=== PATIENT | male | born 1950 | race Caucasian/White ===

== ENCOUNTER 2016-08-08 04:33 | Observation (INO) | payer OTHER ==
[2016-08-08] VITALS (7 sets, daily range): BP systolic 132–165; BP diastolic 75–84; PULSE 60–98; TEMP 36.4–36.5; O2SAT 96–98; Ht 180.3 cm; Wt 89.5 kg
[~2016-08-08] VITALS: Ht 180.3 cm; Wt 89.5 kg
[~2016-08-08 04:33] MED LIST: ASPEC325 PO; GLC500 PO; LISI-729 PO; MEDLIST; METO50TA7 PO; NTRGSL/4 UT; SIMV5TAB2 PO
[2016-08-08 05:00] LABS: BASO % 0.4 %; BASO ABS # 0.02 K/uL (0-0.2); COMPLETE YES; EOS % 3.6 %; HEMATOCRIT 43.2 % (42-52); IG% 0.2 %; LYMPH % 27.6 %; MEAN CELL VOLUME 86.2 fL (80-100); MEAN CORPUSCULAR HEMOGLOBIN 30.7 pg (25-34); MEAN CORPUSCULAR HGB CONC 35.6 g/dl (32-36); MEAN PLATELET VOLUME 9.7 fL (7.4-10.4); MONO % 13.2 %; PLATELET COUNT 172 K/uL (130-400); RED BLOOD COUNT 5.01 M/uL (4.7-6.1); WHITE BLOOD COUNT 4.71 K/uL (4.8-10.8)
[2016-08-08 05:10] LABS: PARTIAL THROMBOPLASTIN RATIO 1.1; PROTHROMBIN TIME (PATIENT) 10.2 SECONDS (9.0-12.0)
[2016-08-08 05:32] LABS: ALT/SGPT 43 U/L (12-78); AST/SGOT 15 U/L (15-37); BLOOD UREA NITROGEN 23 mg/dl (7-18); BUN/CREATININE RATIO 23.3 (10-20); CALCIUM 8.4 mg/dl (8.5-10.1); CARBON DIOXIDE 26 mmol/L (21-32); CHLORIDE 106 mmol/L (98-107); GLUCOSE 151 mg/dl (70-99); MAGNESIUM 2.4 mg/dl (1.8-2.4); POTASSIUM 3.9 mmol/L (3.5-5.1); SODIUM 139 mmol/L (136-145)
[2016-08-08 05:36] LABS: ALB/GLOB RATIO 1.1 (0.9-2); ALKALINE PHOSPHATASE 89 U/L (45-117)
[2016-08-08] MEDS ORDERED: CITA20TA4 PO (05:45)
[2016-08-08] MEDS ORDERED: ASPI81TA28 PO (05:46)
[2016-08-08] MEDS ORDERED: GLC/500 PO (05:47)
--- NOTE | 2016-08-08 06:09 | EMERGENCY ROOM VISIT NOTE ---
ED Visit Note First contact with patient: 04:43 Patient was seen by our PA/MINISTER ASSISTANT. I was involved in the patient's care and did evaluate the patient myself. I was involved in the care throughout the ER stay. The patient presents with chest pain which sounds potentially cardiac in nature. He does have a cardiac history. He has stopped a lot of his cardiac medications. Admission/observation for further cardiac workup was felt warranted.
[2016-08-08] MEDS ORDERED: ASPIRIN 81 MG CHEW PO STA (06:10)
[2016-08-08] MEDS ORDERED: SODIUM CHLORIDE 0.9% 1000ML 1,000 ML IV SCH ×2 (08:04→08:45)
--- NOTE | 2016-08-08 08:04 | History and Physical ---
History & Physical Date & Time of Service: Aug 08, 2016 at 07:54 Chief Complaint: Pain Left Shoulder,Arm And Chest Primary Care Physician: Hossein Castillo M.D. History of Present Illness Source: patient This is a 66 yo M with PMHx of HTN, CAD, Hyperlipidemia, DM II not on insulin, and hx of previous cardiac cath in 2010 without stenting for chest pain complaints, hx radical prostatectomy 2006, depression and anxiety now presenting with new onset of dull left-sided chest pain with radiation into the left arm ,which started yesterday afternoon at approximately 2 PM . When the pain started he took a full dose aspirin and he decided to rest, and noticed that the pain was alleviated slightly. When he was up and walking, he notes that the pain came worse, although he continued to ignore it until late at night. This morning the patient came to the ER as she was fearful that this was cardiac in nature. He denies symptoms including radiation to the neck or jaw, lightheadedness, dizziness, shortness of breath. The patient does admit to a weight gain of approximately 20 pounds since Feb 2016. He is currently not on any cardiac medications, diabetic medications, and has recently stopped taking his statin because of taking dandelion root to help lower his PSA. The patient had lost weight prior to last fall, he was taken off cardiac medications did not require diabetic meds. The patient admits to feeling more short of breath and easily fatigued with exertion since last fall. He reports eating and drinking well. He is a fairly active person. The patient does not smoke although has a remote smoking history 45 years ago. He does drink 1 glass of red wine almost every day of the week. Here in the ER troponins were negative 1, lipase elevated at 451, chest x-ray appears clear, EKG was completed and shows normal sinus rhythm without ischemic or ST wave changes or inversions. The patient's vital signs are stable, he is on room air. Past Medical/Surgical History Diabetes type 2 Coronary artery disease Hypertension Hyperlipidemia Hx of cardiac cath 2010 Depression Anxiety Radical prostatectomy 2006 Social History Smoking Status: Former Smoker Smokeless Tobacco Use: No Alcohol Use: heavy (1 glass of red wine daily) Drug Use: none Marital Status: Housing status: lives with family Occupational Status: retired Immunizations History of Influenza Vaccine: Unknown Influenza Vaccine Date: May 26, 2009 History of Tetanus Vaccine?: Unknown History of Pneumococcal: Unknown Pneumococcal Date: Feb 24, 2008 History of Hepatitis B Vaccine: Unknown Multi-Drug Resistant Organisms History of MDRO: No Allergies Coded Allergies: No Known Allergies (Verified , 07/24/09) Home Medications Scheduled Aspirin (Aspirin Ec), 81 MG PO DAILY Citalopram Hydrobromide (Citalopram Hydrobromide), 20 MG PO DAILY Scheduled PRN Metformin Hcl (Glucophage), 500 MG PO DAILY PRN for ELEVATED BLOOD SUGAR Review of Systems ROS Constitutional: No fever, chills, sweats, fatigue or weakness Eyes: No diplopia, no changes in vision ENT: No sore throat, tinnitus, or trouble swallowing Respiratory: No shortness of breath, + increased shortness of breath on exertion , no cough or sputum Cardiovascular: + chest pain, radiation to the left arm. No palpitations, or flutter Abdomen: No pain, No constipation, No diarrhea, No nausea, No vomiting Musculoskeletal: No calf pain, No joint pain, No swelling Genitourinary : No dysuria or urinary frequency, No hematuria Neurologic: No numbness/tingling, no difficulty with ambulation, no sensory or motor deficits Psychiatric: hx of depression, + anxiety symptoms Endocrine: No fatigue, + wt gain of 20 pounds Integumentary: No itch, No rash Physical Exam Vital Signs Date Time Temp Pulse Resp B/P Pulse Ox O2 Delivery O2 Flow Rate FiO2 08/08/16 07:30 98 Room Air 08/08/16 06:19 70 20 139/81 98 Room Air 08/08/16 05:06 66 08/08/16 04:56 99 Room Air 08/08/16 04:37 36.4 78 18 138/79 97 Room Air General Appearance: WD/WN, no apparent distress Head: normocephalic, atraumatic Eyes: PERRL, EOMI ENT: hearing grossly normal, pharynx normal Neck: supple, no JVD Respiratory/Chest: lungs clear, no respiratory distress, no accessory muscle use, + pertinent finding (chest tender with palpation over left anterior side) Cardiovascular: regular rate, rhythm, no JVD, no murmur, normal peripheral pulses Abdomen/GI: normal bowel sounds, non tender, soft, no organomegaly Back: normal inspection Extremities/Musculoskelatal: normal inspection, no calf tenderness, no pedal edema Neurologic/Psych: alert, normal mood/affect, oriented x 3 Skin: normal color, warm/dry Diagnostics Laboratory Results Results Past 24 Hours Test 08/08/16 04:50 08/08/16 04:54 Range/Units White Blood Count 4.71 4.8-10.8 K/uL Red Blood Count 5.01 4.7-6.1 M/uL Hemoglobin 15.4 14.0-18.0 g/dL Hematocrit 43.2 42-52 % Mean Corpuscular Volume 86.2 80-100 fL Mean Corpuscular Hemoglobin 30.7 25-34 pg Mean Corpuscular Hemoglobin Concent 35.6 32-36 g/dl Platelet Count 172 130-400 K/uL Mean Platelet Volume 9.7 7.4-10.4 fL Neutrophils (%) (Auto) 55.0 % Lymphocytes (%) (Auto) 27.6 % Monocytes (%) (Auto) 13.2 % Eosinophils (%) (Auto) 3.6 % Basophils (%) (Auto) 0.4 % Neutrophils # (Auto) 2.59 1.4-6.5 K/uL Lymphocytes # (Auto) 1.30 1.2-3.4 K/uL Monocytes # (Auto) 0.62 0.11-0.59 K/uL Eosinophils # (Auto) 0.17 0-0.5 K/uL Basophils # (Auto) 0.02 0-0.2 K/uL RDW Standard Deviation 40.8 36.4-46.3 fL RDW Coefficient of Variation 12.9 11.5-14.5 % Immature Granulocyte % (Auto) 0.2 % Immature Granulocyte # (Auto) 0.01 0.00-0.02 K/uL Prothrombin Time 10.2 9.0-12.0 SECONDS Prothromb Time International Ratio 1.0 0.9-1.1 Activated Partial Thromboplast Time 29.7 21.0-31.0 SECONDS Partial Thromboplastin Ratio 1.1 Sodium Level 139 136-145 mmol/L Potassium Level 3.9 3.5-5.1 mmol/L Chloride Level 106 98-107 mmol/L Carbon Dioxide Level 26 21-32 mmol/L Anion Gap 7.0 3-11 mmol/L Blood Urea Nitrogen 23 7-18 mg/dl Creatinine 1.00 0.60-1.40 mg/dl Est Creatinine Clear Calc Drug Dose 76.3 ml/min Estimated GFR () 89.9 Estimated GFR (Non- 77.5 BUN/Creatinine Ratio 23.3 10-20 Random Glucose 151 70-99 mg/dl Calcium Level 8.4 8.5-10.1 mg/dl Magnesium Level 2.4 1.8-2.4 mg/dl Total Bilirubin 0.5 0.2-1 mg/dl Aspartate Amino Transf (AST/SGOT) 15 15-37 U/L Alanine Aminotransferase (ALT/SGPT) 43 12-78 U/L Alkaline Phosphatase 89 45-117 U/L Total Creatine Kinase 57 39-308 U/L Creatine Kinase MB < 0.5 0.5-3.6 ng/ml Creatine Kinase MB Ratio 0-3.0 Troponin I < 0.015 0-0.045 ng/ml Total Protein 7.4 6.4-8.2 gm/dl Albumin 3.9 3.4-5.0 gm/dl Globulin 3.5 2.5-4.0 gm/dl Albumin/Globulin Ratio 1.1 0.9-2 Lipase 451 73-393 U/L Chemistry Specimen Hemolysis Bedside Troponin I 0.000 0-0.045 ng/ml Diagnostic Radiology Chest x-ray reviewed: Appears to be clear without infiltrates, not formally read yet by radiology. EKG Vent. rate 74 BPM WV interval 162 ms QRS duration 90 ms QT/QTc 396/439 ms P-R-T axes 54 25 45 Normal sinus rhythm, no findings ischemic changes or ST wave inversions Impression Assessment and Plan This is a 66 yo M with PMHx of HTN, CAD, Hyperlipidemia, DM II not on insulin, and hx of previous cardiac cath in 2010 without stenting for chest pain complaints, hx radical prostatectomy 2006, depression and anxiety now presenting with new onset of dull left-sided chest pain with radiation into the left arm ,which started yesterday afternoon at approximately 2 PM . Chest pain rule out CAD Hypertension Hyperlipidemia - Admit to telemetry for observation - + pain with palpation of the chest wall may be more musculoskeletal involvement, however remote smoking history, weight gain of 20 pounds, age, male , and cardiac history all pose significant risk factors - Trend cardiac biomarkers 2 more sets - Check 2-D echo - Cardiology consulted - Patient is not on any antihypertensive medication, not on statin other than fish oil - Discussion regarding weight gain and diet/exercise was held at the bedside- will need further reinforcement after the workup completed - Nitro paste when necessary, continue baby aspirin 81 mg daily - EKG when necessary Diabetes type 2 - Patient controlled by diet - Recently started taking metformin, hold for now - ISS with accuchecks Depression/anxiety - Continue Celexa 20 mg daily. Patient states that he has plans to get off this medication although his anxiety and depression are well controlled on it. He reports his social triggers have decreased since starting the medication as well. - Continue to follow with his PCP DVT prophylaxis: Teds, SCDs, heparin subcutaneous CODE STATUS: Full code Disposition: patient from home, likely discharge tomorrow Advanced Directives Existing Living Will: Yes Existing Power of Taxi Driver Supervisor: No Resuscitation Status FULL RESUSCITATION VTE Prophylaxis VTE Risk Assessment Done? Y/N: Yes Risk Level: Low Given or contraindicated: Unfractionated heparin SQ, T.E.D. Stockings, SCD's
[2016-08-08] MEDS ORDERED: ACETAMINOPHEN 325 MG TAB PO PRN ×2 (08:15→08:45)
[2016-08-08] MEDS ORDERED: ONDANSETRON INJ 2 MG/ML 2 ML VIAL IV PRN (08:15)
[2016-08-08] MEDS ORDERED: NITROGLYCERIN OINT 2% 1GM PACKET EXT SCH (08:15)
--- NOTE | 2016-08-08 08:16 | EMERGENCY ROOM VISIT NOTE ---
History First contact with patient: 04:43 Chief Complaint: CARDIAC ASSESSMENT Stated Complaint: PAIN LEFT SHOULDER,ARM AND CHEST Nursing Triage Summary: reports intermittent cp since yesterday ,tonight awoke from sleep with pain in shoulder and back , reports increased exertional sob starting tonight , denies VILLELA RICHA History of Present Illness The patient is a 66 year old male who presents to the Emergency Department by private vehicle for evaluation of his LEFT-sided chest pain with radiation to his shoulder and arm. The patient reports the symptoms started yesterday afternoon while ambulating through his kitchen. The symptoms resolved with rest. He was awoken from sleep tonight with the same pain to the LEFT sided chest. He took nothing for symptoms. He did experience similar symptoms in 2009 when he had a cardiac catheterization performed at this facility. He was placed on medications for atherosclerosis of a diagonal vessel. He does admit that he has not been on medications for a few years now as he felt that he was improving with diet. He did follow-up with his primary care provider most recently was placed back on his diabetic medications as his blood sugar did increase after doing poorly with his diet recently. The patient reports a significant family history of cardiac disease. He denies any history of smoking. He rates current discomfort as a 2/10. He denies any headaches, dizziness, light headedness, palpitations, shortness of breath, hemoptysis, nausea, vomiting, abdominal pain. Review of Systems A complete 10-point Review of Systems was discussed with the patient, with pertinent positives and negatives listed in the History of Present Illness. All remaining Review of Systems questions can be considered negative unless otherwise specified. Social History Smoking Status: Never Smoker Smokeless Tobacco Use: No Alcohol Use: none Drug Use: none Marital Status: Housing Status: lives with family Occupation Status: retired Current/Historical Medications Scheduled Aspirin (Aspirin Ec), 81 MG PO DAILY Citalopram Hydrobromide (Citalopram Hydrobromide), 20 MG PO DAILY Scheduled PRN Metformin Hcl (Glucophage), 500 MG PO DAILY PRN for ELEVATED BLOOD SUGAR Allergies Coded Allergies: No Known Allergies (Verified , 07/24/09) Physical Exam Vital Signs Date Time Temp Pulse Resp B/P Pulse Ox O2 Delivery O2 Flow Rate FiO2 08/08/16 07:30 98 Room Air 08/08/16 06:19 70 20 139/81 98 Room Air 08/08/16 05:06 66 08/08/16 04:56 99 Room Air 08/08/16 04:37 36.4 78 18 138/79 97 Room Air Pain Rating (0-10): 2 Physical Exam VITAL SIGNS - Vital signs and nursing notes were reviewed. GENERAL - 66-year-old male appearing his stated age who is in no acute distress. Communicates well with provider and answers questions appropriately. LUNGS - Chest wall symmetric without accessory muscle use, intercostals retractions, or central cyanosis. Normal vesicular breath sounds CTA B/L. No wheezes, rales, or rhonchi appreciated. CARDIAC - RRR with S1/S2. No murmur, rubs, or gallops appreciated. No reproducible tenderness to palpation appreciated over the anterior chest wall. ABDOMEN - Abdominal contour flat and without pulsations or visible masses. BS normoactive all four quadrants. No tenderness, palpable masses, hepatosplenomegaly, or ascites noted. EXTREMITIES - No clubbing or peripheral cyanosis. No pretibial edema present. +3 /5 radial and dorsalis pedis pulses palpated throughout. +5/5 strength noted in UE/LE bilaterally. NEUROLOGIC - Cranial nerves II through XII grossly intact. Sensory intact to light touch throughout. PSYCH - A&Ox3 and cooperates fully with examiner. Pt is very pleasant and interacts well with examiner. Medical Decision & Procedures ER Provider Diagnostic Interpretation: X-ray of the chest was reviewed by myself and my attending physician. X-ray demonstrates no acute cardiopulmonary processes per our interpretation. Radiologist's impression unavailable at the time of dictation. Laboratory Results 08/08/16 04:50 Red Blood Count 5.01, Mean Corpuscular Volume 86.2, Mean Corpuscular Hemoglobin 30.7, Mean Corpuscular Hemoglobin Concent 35.6, Mean Platelet Volume 9.7, Neutrophils (%) (Auto) 55.0, Lymphocytes (%) (Auto) 27.6, Monocytes (%) (Auto) 13.2, Eosinophils (%) (Auto) 3.6, Basophils (%) (Auto) 0.4, Neutrophils # (Auto ) 2.59, Lymphocytes # (Auto) 1.30, Monocytes # (Auto) 0.62, Eosinophils # (Auto ) 0.17, Basophils # (Auto) 0.02 08/08/16 04:50 Test 08/08/16 04:50 08/08/16 04:54 White Blood Count 4.71 K/uL (4.8-10.8) Red Blood Count 5.01 M/uL (4.7-6.1) Hemoglobin 15.4 g/dL (14.0-18.0) Hematocrit 43.2 % (42-52) Mean Corpuscular Volume 86.2 fL (80-100) Mean Corpuscular Hemoglobin 30.7 pg (25-34) Mean Corpuscular Hemoglobin Concent 35.6 g/dl (32-36) Platelet Count 172 K/uL (130-400) Mean Platelet Volume 9.7 fL (7.4-10.4) Neutrophils (%) (Auto) 55.0 % Lymphocytes (%) (Auto) 27.6 % Monocytes (%) (Auto) 13.2 % Eosinophils (%) (Auto) 3.6 % Basophils (%) (Auto) 0.4 % Neutrophils # (Auto) 2.59 K/uL (1.4-6.5) Lymphocytes # (Auto) 1.30 K/uL (1.2-3.4) Monocytes # (Auto) 0.62 K/uL (0.11-0.59) Eosinophils # (Auto) 0.17 K/uL (0-0.5) Basophils # (Auto) 0.02 K/uL (0-0.2) RDW Standard Deviation 40.8 fL (36.4-46.3) RDW Coefficient of Variation 12.9 % (11.5-14.5) Immature Granulocyte % (Auto) 0.2 % Immature Granulocyte # (Auto) 0.01 K/uL (0.00-0.02) Prothrombin Time 10.2 SECONDS (9.0-12.0) Prothromb Time International Ratio 1.0 (0.9-1.1) Activated Partial Thromboplast Time 29.7 SECONDS (21.0-31.0) Partial Thromboplastin Ratio 1.1 Anion Gap 7.0 mmol/L (3-11) Est Creatinine Clear Calc Drug Dose 76.3 ml/min Estimated GFR () 89.9 Estimated GFR (Non- 77.5 BUN/Creatinine Ratio 23.3 (10-20) Calcium Level 8.4 mg/dl (8.5-10.1) Magnesium Level 2.4 mg/dl (1.8-2.4) Total Bilirubin 0.5 mg/dl (0.2-1) Aspartate Amino Transf (AST/SGOT) 15 U/L (15-37) Alanine Aminotransferase (ALT/SGPT) 43 U/L (12-78) Alkaline Phosphatase 89 U/L (45-117) Total Creatine Kinase 57 U/L (39-308) Creatine Kinase MB < 0.5 ng/ml (0.5-3.6) Creatine Kinase MB Ratio (0-3.0) Troponin I < 0.015 ng/ml (0-0.045) Total Protein 7.4 gm/dl (6.4-8.2) Albumin 3.9 gm/dl (3.4-5.0) Globulin 3.5 gm/dl (2.5-4.0) Albumin/Globulin Ratio 1.1 (0.9-2) Lipase 451 U/L (73-393) Chemistry Specimen Hemolysis Bedside Troponin I 0.000 ng/ml (0-0.045) Medications Administered Medications (Trade) Dose Ordered Sig/Asael Route Start Time Stop Time Status Last Admin Dose Admin Aspirin (Aspirin Chew) 324 mg NOW STAT PO 08/08/16 06:10 08/08/16 06:12 DC 08/08/16 06:17 324 MG Procedure Patient was placed on the cardiac nurse and monitored throughout the entire extent of their stay. In addition, the patient's pulse oximetry was monitored throughout the entire stay. Any abnormalities or aberrancies were addressed appropriately. ECG Indication: chest pain Rate (beats per minute): 74 Rhythm: normal sinus Findings: no acute ischemic change, no ectopy Change: no significant change (from 05/30/2010.) ED Course Patient was seen and evaluated by myself. Labs were drawn, saline lock in place. Previous hospitalization notes were reviewed. Patient was treated with 324 mg aspirin orally. EKG and chest x-rays were obtained. Laboratory results demonstrate no acute leukocytosis, worrisome anemia, or bandemia. The patient has no significant electrolyte abnormalities. Cardiac enzymes are negative. Troponin is negative. Patient was reevaluated and has no pain at this time. Case is discussed with my attending physician who agrees with diagnostic approach treatment plan. Case was discussed with the [facility] hospitalist who agrees to admit the patient for further evaluation and management. Patient admitted in stable condition. Medical Decision Given the patient's presentation and stated complaints, I did elect to perform the above-mentioned workup. The patient resents today with LEFT sided chest pain on exertion initially. The patient has a concerning history with an extensively occluded LEFT-sided diagonal vessel which was diagnosed in 2009 on cardiac catheterization. He was initially aggressively medically managed. He was on Imdur as well as metoprolol. He was also on glyburide and metformin. Essentially, the patient took himself off of his medications and was using over- the-counter and home remedies for his treatment. I am concerned as the patient has developed a new onset of exertional chest pain. His symptoms are not reproducible. He has no fever leukocytosis. His cardiac enzymes are initially negative as are x-ray and EKG, however his history is really concerning. The patient was [facility] for further evaluation and management. Patient admitted in stable condition. In the evaluation and treatment of this patient, the following differential diagnoses were considered: CO, ASC, Dysrhythmia, Angina, Mediastinitis, GERD, Esophagitis, PE, Pneumonia, Bronchitis, Costochondritis, Rib Fracture, Zoster. Impression Primary Impression: Chest pain Departure Information Dispostion Against Medical Advice Condition FAIR Referrals Hossein Castillo M.D. (PCP) Patient Instructions My [facility] Problem Qualifiers Primary Impression: Chest pain Chest pain type: precordial pain Qualified Codes: R07.2 - Precordial pain
--- NOTE | 2016-08-08 08:40 | DIAGNOSTIC IMAGING REPORT ---
CHEST ONE VIEW PORTABLE CLINICAL HISTORY: Atypical chest pain COMPARISON STUDY: No previous studies for comparison. FINDINGS: The cardiac and mediastinal contours are normal. There is no evidence of focal pulmonary consolidation. There is no evidence of failure. No pleural effusions are visualized.[ IMPRESSION: No active disease in the chest. Electronically signed by: Samson Rivas M.D. 08/08/2016 8:39 AM Dictated Date/Time: 08/08/2016 8:38 AM
[2016-08-08] MEDS ORDERED: DEXTROSE 50% 50 ML SYR IV PRN ×2 (08:45→09:00)
[2016-08-08] MEDS ORDERED: MoRPHine SULFATE 2 MG/ML CARP IV PRN (08:45)
[2016-08-08] MEDS ORDERED: ALUMINUM/MAGNESIUM/SIMETH (MAALOX MAX) 30 ML UDC PO PRN (08:45)
[2016-08-08] MEDS ORDERED: GLUCOSE 40% GEL 15 GM TUBE PO PRN ×2 (08:45→09:00)
[2016-08-08] MEDS ORDERED: GLUCAGON FOR INJ 1 MG VIAL SQ PRN ×2 (08:45→09:00)
[2016-08-08] MEDS ORDERED: NITROGLYCERIN 0.4 MG SL PER TAB CHARGE SL PRN (08:45)
[2016-08-08] MEDS ORDERED: ZOLPIDEM TARTRATE 5 MG TAB PO PRN (08:45)
[2016-08-08] MEDS ORDERED: MAGNESIUM HYDROXIDE SUSP 30 ML UDC PO PRN (08:45)
[2016-08-08] MEDS ORDERED: GLUCOSE 10 TABS/TUBE PO PRN ×2 (08:45→09:00)
[2016-08-08] MEDS ORDERED: ASPIRIN 81 MG ECTAB PO SCH (09:00)
--- NOTE | 2016-08-08 09:41 | History and Physical ---
History & Physical Date & Time of Service: Aug 08, 2016 at 09:11 Chief Complaint: Pain Left Shoulder,Arm And Chest Primary Care Physician: Hossein Castillo M.D. History of Present Illness Source: patient This is a 66 yo M with PMHx of CAD diagnosed in 2009 (known 80% lesion in a coronory branch artery/he does not remember the name / was not stented due to unfeasible lesion located at a bifurcation), Hyperlipidemia, DM II used to be on Metformin and glyburide but stopped after being on a strict diet, also has hx radical prostatectomy 2006, depression and anxiety. He presented to ED with left side dchest pain. pain started yesterday noon 3-08/16 dull aching. worsened by walking and exertion. partially relieved by aspirin at night pain subsided but then re occurred while he was asleep and woke him up early in the morning. referred to left shoulder and left arm no other associated factors quit smoking 45 years ago. He does drink 1 glass of red wine almost every day of the week. labs and imaging reviewed troponins were negative 1, lipase is border line elevated at 451, chest x-ray appears clear, EKG shows normal sinus rhythm with nonspecific ST changes. Family History father from CHF two sebilings both have CHF and DM on insulin grand mother has DM Social History Smoking Status: Never Smoker Smokeless Tobacco Use: No Alcohol Use: heavy (1 glass of red wine daily) Drug Use: none Marital Status: Housing status: lives with family Occupational Status: retired Immunizations History of Influenza Vaccine: Unknown Influenza Vaccine Date: May 26, 2009 History of Tetanus Vaccine?: Unknown History of Pneumococcal: Unknown Pneumococcal Date: Feb 24, 2008 History of Hepatitis B Vaccine: Unknown Multi-Drug Resistant Organisms History of MDRO: No Allergies Coded Allergies: No Known Allergies (Verified , 07/24/09) Home Medications Scheduled Aspirin (Aspirin Ec), 81 MG PO DAILY Citalopram Hydrobromide (Citalopram Hydrobromide), 20 MG PO DAILY Scheduled PRN Metformin Hcl (Glucophage), 500 MG PO DAILY PRN for ELEVATED BLOOD SUGAR Review of Systems Constitutional: No chills, No fatigue, No fever, No problem reported, No sweats , No weakness, No weight loss Eyes: No diplopia, No discharge, No eye pain, No problem reported, No redness, No worsening of vision ENT: No dental problems, No hearing loss, No nasal symptoms, No problem reported, No sore throat, No tinnitus, No trouble swallowing, No unusual epistaxis Respiratory: No cough, No dyspnea at rest, No dyspnea on exertion, No hemoptysis, No problem reported, No shortness of breath, No sputum, No wheezing Cardiovascular: + chest pain, No PND, No claudication, No edema, No orthopnea, No palpitations, No problem reported Abdomen: No GI bleeding, No constipation, No diarrhea, No nausea, No pain, No problem reported, No vomiting Musculoskeletal: No calf pain, No joint pain, No muscle pain, No problem reported, No swelling Genitourinary - Male: No dysuria, No hematuria, No impotence, No lesions, No penile discharge, No problem reported, No urinary frequency, No urinary hesitancy, No urinary incontinence, No urinary retention, No urinary urgency Neurologic: No balance problems, No memory loss, No numbness/tingling, No paralysis, No problem reported, No vertigo, No weakness Psychiatric: No anhedonism, No anxiety, No depression symptoms, No insomnia, No problem reported, No substance abuse Endocrine: No excessive thirst, No excessive urination, No fatigue, No problem reported Hematologic / Lymphatic: No abnormal bleeding/bruising, No clotting problems, No night sweats, No problem reported, No swollen lymph nodes Integumentary: No bleeding, No color change, No itch, No new/changing skin lesions, No problem reported, No rash Allergic / Immunologic: No environmental allergies, No food allergies, No frequent infections, No hives, No pet sensitivities, No poor healing, No problem reported, No prolonged convalescence, No seasonal allergies Physical Exam Vital Signs Date Time Temp Pulse Resp B/P Pulse Ox O2 Delivery O2 Flow Rate FiO2 08/08/16 08:51 64 20 131/76 97 08/08/16 07:30 98 Room Air 08/08/16 06:19 70 20 139/81 98 Room Air 08/08/16 05:06 66 08/08/16 04:56 99 Room Air 08/08/16 04:37 36.4 78 18 138/79 97 Room Air General Appearance: WD/WN, no apparent distress Head: normocephalic, atraumatic Eyes: normal inspection, EOMI ENT: normal ENT inspection, hearing grossly normal Neck: supple, no JVD Respiratory/Chest: chest non-tender, lungs clear, normal breath sounds, no respiratory distress, no accessory muscle use, + pertinent finding (chest tender with palpation over left anterior side) Cardiovascular: regular rate, rhythm, no edema, no JVD, no murmur, normal peripheral pulses Abdomen/GI: normal bowel sounds, non tender, soft, no organomegaly, normal rectal exam Back: normal inspection Extremities/Musculoskelatal: normal inspection, no calf tenderness, no pedal edema, normal range of motion Neurologic/Psych: receiving lead II-XII nml as tested, no motor/sensory deficits, alert, normal mood/affect, oriented x 3 Skin: normal color, warm/dry, no rash Diagnostics Laboratory Results Results Past 24 Hours Test 08/08/16 04:50 08/08/16 04:54 08/08/16 08:45 Range/Units White Blood Count 4.71 4.8-10.8 K/uL Red Blood Count 5.01 4.7-6.1 M/uL Hemoglobin 15.4 14.0-18.0 g/dL Hematocrit 43.2 42-52 % Mean Corpuscular Volume 86.2 80-100 fL Mean Corpuscular Hemoglobin 30.7 25-34 pg Mean Corpuscular Hemoglobin Concent 35.6 32-36 g/dl Platelet Count 172 130-400 K/uL Mean Platelet Volume 9.7 7.4-10.4 fL Neutrophils (%) (Auto) 55.0 % Lymphocytes (%) (Auto) 27.6 % Monocytes (%) (Auto) 13.2 % Eosinophils (%) (Auto) 3.6 % Basophils (%) (Auto) 0.4 % Neutrophils # (Auto) 2.59 1.4-6.5 K/uL Lymphocytes # (Auto) 1.30 1.2-3.4 K/uL Monocytes # (Auto) 0.62 0.11-0.59 K/uL Eosinophils # (Auto) 0.17 0-0.5 K/uL Basophils # (Auto) 0.02 0-0.2 K/uL RDW Standard Deviation 40.8 36.4-46.3 fL RDW Coefficient of Variation 12.9 11.5-14.5 % Immature Granulocyte % (Auto) 0.2 % Immature Granulocyte # (Auto) 0.01 0.00-0.02 K/uL Prothrombin Time 10.2 9.0-12.0 SECONDS Prothromb Time International Ratio 1.0 0.9-1.1 Activated Partial Thromboplast Time 29.7 21.0-31.0 SECONDS Partial Thromboplastin Ratio 1.1 Sodium Level 139 136-145 mmol/L Potassium Level 3.9 3.5-5.1 mmol/L Chloride Level 106 98-107 mmol/L Carbon Dioxide Level 26 21-32 mmol/L Anion Gap 7.0 3-11 mmol/L Blood Urea Nitrogen 23 7-18 mg/dl Creatinine 1.00 0.60-1.40 mg/dl Est Creatinine Clear Calc Drug Dose 76.3 ml/min Estimated GFR () 89.9 Estimated GFR (Non- 77.5 BUN/Creatinine Ratio 23.3 10-20 Random Glucose 151 70-99 mg/dl Calcium Level 8.4 8.5-10.1 mg/dl Magnesium Level 2.4 1.8-2.4 mg/dl Total Bilirubin 0.5 0.2-1 mg/dl Aspartate Amino Transf (AST/SGOT) 15 15-37 U/L Alanine Aminotransferase (ALT/SGPT) 43 12-78 U/L Alkaline Phosphatase 89 45-117 U/L Total Creatine Kinase 57 39-308 U/L Creatine Kinase MB < 0.5 0.5-3.6 ng/ml Creatine Kinase MB Ratio 0-3.0 Troponin I < 0.015 0-0.045 ng/ml Total Protein 7.4 6.4-8.2 gm/dl Albumin 3.9 3.4-5.0 gm/dl Globulin 3.5 2.5-4.0 gm/dl Albumin/Globulin Ratio 1.1 0.9-2 Lipase 451 73-393 U/L Chemistry Specimen Hemolysis Bedside Troponin I 0.000 0-0.045 ng/ml Impression Assessment and Plan This is a 66 yo M with PMHx of CAD diagnosed in 2009 (known 80% lesion in a coronory branch artery/he does not remember the name / was not stented due to unfeasible lesion located at a bifurcation), Hyperlipidemia, DM II used to be on Metformin and glyburide but stopped after being on a strict diet, also has hx radical prostatectomy 2006, depression and anxiety now presenting with new onset of dull left-sided chest pain with radiation into the left arm Hx of CAD with new onset Chest pain rule out ACS serial cardiac enz keep NPO until seen by radiator mechanic if possible needs to be discharged tomorrow by noon as he is traveling tomorrow to [place] to visit his son and grand daughter cardiology consult check lipids/HgbA1C to stratify his risk IVF hydration restart his statin (lipitor 20mg po daily) Aspirin NTG Hyperlipidemia He stopped his statin few years ago will restart him on lipitor DMII he also stopped his oral hypoglycemics will obtain HgbA1C first SSI Depression/anxiety - Continue Celexa 20 mg daily. DVT prophylaxis: Teds, SCDs, heparin subcutaneous CODE STATUS: Full code Disposition: patient from home, likely discharge tomorrow Advanced Directives Existing Living Will: Yes Existing Power of Intern Brand: No VTE Prophylaxis VTE Risk Assessment Done? Y/N: Yes Risk Level: Low Given or contraindicated: Unfractionated heparin SQ, T.E.D. Stockings, SCD's
[2016-08-08] MEDS ORDERED: CITALOPRAM 20 MG TAB PO SCH (10:00)
[2016-08-08] MEDS: NITROGLYCERIN OINT 2% 1GM PACKET EXT SCH ×2 (10:49→16:00)
[2016-08-08] MEDS ORDERED: PHARMACY GLYCEMIC MGMT CONSULT PRN (11:59)
[2016-08-08] MEDS: INSULIN ASPART 100 UNITS/ML 3 ML PEN SC SCH ×2 (12:15→16:15)
--- NOTE | 2016-08-08 12:37 | Pharmacy Progress Note ---
Glycemic Control Intl Consult Date of Service Aug 08, 2016. Scope Glycemic Pharmacist consulted for glycemic control and to write orders per [facility] inpatient glycemic control protocol Objective Weight (Kilograms): 89.500 Accuchecks BSG (last 24hrs): Test 08/08/16 04:50 08/08/16 11:24 Random Glucose 151 mg/dl (70-99) Bedside Glucose 124 mg/dl (70-99) Laboratory Data (last 24hrs) Test 08/08/16 04:50 Anion Gap 7.0 mmol/L BUN/Creatinine Ratio 23.3 Blood Urea Nitrogen 23 mg/dl Creatinine 1.00 mg/dl Potassium Level 3.9 mmol/L Sodium Level 139 mmol/L White Blood Count 4.71 K/uL Red Blood Count 5.01 M/uL Hemoglobin 15.4 g/dL Hematocrit 43.2 % Mean Corpuscular Volume 86.2 fL Mean Corpuscular Hemoglobin 30.7 pg Mean Corpuscular Hemoglobin Concent 35.6 g/dl Platelet Count 172 K/uL Mean Platelet Volume 9.7 fL Neutrophils (%) (Auto) 55.0 % Lymphocytes (%) (Auto) 27.6 % Monocytes (%) (Auto) 13.2 % Eosinophils (%) (Auto) 3.6 % Basophils (%) (Auto) 0.4 % Neutrophils # (Auto) 2.59 K/uL Lymphocytes # (Auto) 1.30 K/uL Monocytes # (Auto) 0.62 K/uL Eosinophils # (Auto) 0.17 K/uL Basophils # (Auto) 0.02 K/uL Recent Pertinent Medications Outpatient Anti-diabetic Regimen: * Metformin prn hyperglycemia * Per H&P, patient was on metformin and glyburide but is now diet-controlled * A1c pending for 08/09/16 Risk Factors for Insulin Resistance: * Diet: NPO Assessment & Plan ASSESSMENT: * ADA & AACE recommend a goal blood sugar range 140-180 mg/dl for the majority of critically ill & non-critically ill patients. However, more stringent targets may be selected in individual cases. * 66 yo M with unknown HbA1c, reported to have diet-controlled T2DM * Patient is not hyperglycemic at this time and not ordered a diet * Will only do sliding scale at this point * May consider adding in a carb ratio if/when patient is ordered a diet and BSG' s increase above 140 mg/dL PLAN FOR INPATIENT GLYCEMIC CONTROL: * Correctional Insulin with NOVOLOG per scale ACHS or Q6hrs while NPO * Goal Range: Low 110 mg/dL - High 140 mg/dL * Correction Factor: 25 mg/dL/unit * Please note that the plan above was derived based on current level of insulin resistance and hospital stress. These recommendations are appropriate for inpatient admission only. Plan of care upon discharge will need to be reassessed to avoid potential outpatient hypo/hyperglycemia. Thank you.
[2016-08-08] MEDS ORDERED: HEPARIN SOD 5000 UNIT/0.5 ML CARP SQ SCH ×2 (14:00)
[2016-08-08] MEDS ORDERED: IV FLUIDS COMPLETED PRN (14:15)
--- NOTE | 2016-08-08 15:45 | EXERCISE STRESS ECHO ---
*NOTICE TO RECEIVING LIBERTARIAN AGENCY This information is strictly Confidential and protected under [place] law. [place] law prohibits you from making any further disclosure of this information unless further disclosure is expressly permitted by the written consent of the person to whom it pertains or is authorized by law. A general authorization for the release of medical or other information is not sufficient for this purpose. Hospital accepts no responsibility if the information is made available to any other person, INCLUDING THE PATIENT. Interpretation Summary * Name: WESLEY ROSALES Study Date: 08/08/2016 01:03 PM BP: 131/75 mmHg * Patient Location: C.2T\S\S238\S\1 HR: 88 * : 1950 (M/d/yyyy) Gender: Male Height: 71 in * Age: 66 yrs Ethnicity: CA Weight: 197 lb * Ordering Physician: Aurea Cordova * Performed By: Margarette Luque RDCS * * Reason For Study: Chest pain * BSA: 2.1 m2 * -- Conclusions -- * 1. Negative exercise stress echo for ischemia at 104% MPHR. * 2. Negative stress ECG for ischemia. * 3. Above average functional capacity. Exercised 9 minutes, achieved 10.1 METs. * 4. No exercise induced chest pain. Normal hemodynamic response to exercise. * 5. Normal resting biventricular size and function. No significant valvular pathology. * 6. No prior studies for comparison. Procedure Details * ECHOEX, CPT #[id number] * ECHO DOPPLER, CPT #[id number] * ECHO COLOR FLOW, CPT #[id number] * A contrast injection of Definity was performed to improve assessment of LV function. * Contrast was injected into an intravenous site in the left arm. * One vial of Definity ultrasound contrast was diluted in normal saline to a total volume of 10 ml. A total of '4.5' ml of solution was administered during imaging. * Lot # [id number] of Definity utilized for procedure. * Expiration date AUG 24. * The attending nurse who injected the contrast agent was Ashleigh Nice RN. Left Ventricular Findings with Stress * This was essentially a normal study. Left Ventricle * The left ventricle is grossly normal size. * There is normal left ventricular wall thickness. * Ejection Fraction = 55-60%. * No regional wall motion abnormalities noted. Right Ventricle * The right ventricle is grossly normal size. * The right ventricular systolic function is normal as assessed by tricuspid annular plane systolic excursion (TAPSE) (normal >1.5 cm). Atria * The left atrial size is normal. * Right atrial size is normal. Mitral Valve * The mitral valve leaflets appear thickened, but open well. * There is no mitral valve stenosis. * Significant mitral regurgitation is absent. Tricuspid Valve * The tricuspid valve is not well visualized, but is grossly normal. * There is no tricuspid stenosis. * There is trace tricuspid regurgitation. Aortic Valve * The aortic valve opens well. * The aortic valve is trileaflet. * No hemodynamically significant valvular aortic stenosis. * There is no significant aortic regurgitation. Pulmonic Valve * The pulmonary valve is inadequately visualized, but the Doppler data is adequate for interpretation. * Trace pulmonic valvular regurgitation. Great Vessels * The aortic root and proximal ascending aorta are normal sized. Pericardium * There is no pericardial effusion. Stress Parameters * Normal baseline electrocardiogram. * Stress ECG: No ST changes. No arrhythmias. * The stress portion of this study was personally supervised by the undersigned interpreting physician. * Rest heart rate was '88' BPM. * Rest blood pressure was '110' * Maximum heart rate achieved was 160 bpm. * Maximum heart rate was 104 % of maximum age-predicted heart rate. * Maximum blood pressure was '222/55' * Total exercise time was '9:00' * Maximum exercise MET level achieved was '10.10' METS * Maximum treadmill speed was '3.40' miles per hour. * Maximum treadmill elevation was '14.00'% grade. * Exercise was terminated due to 'achieving target heart rate' Left Ventricular Findings with Stress * The study was technically adequate. Left Ventricular Diastolic Function * Grade I diastolic dysfunction, (abnormal relaxation pattern). MMode 2D Measurements and Calculations IVSd 1.0 cm LVIDd 4.0 cm LVIDs 2.7 cm LVPWd 1.0 cm IVS/LVPW 1.0 FS 32.0 % EDV(Teich) 68.9 ml ESV(Teich) 27.0 ml EF(Teich) 60.7 % EDV(cubed) 62.7 ml ESV(cubed) 19.7 ml EF(cubed) 68.6 % LV mass(C)d 126.7 grams LV mass(C)dI 60.5 grams/m\S\2 CO(Teich) 2.9 l/min CI(Teich) 1.4 l/min/m\S\2 SV(Teich) 41.8 ml SI(Teich) 20.0 ml/m\S\2 CO(cubed) 3.0 l/min CI(cubed) 1.4 l/min/m\S\2 SV(cubed) 43.0 ml SI(cubed) 20.5 ml/m\S\2 Ao root diam 3.6 cm Ao root area 10.0 cm\S\2 ACS 1.9 cm LA dimension 2.9 cm asc Aorta Diam 3.3 cm LA/Ao 0.81 LVOT diam 2.0 cm LVOT area 3.1 cm\S\2 LVAd ap4 25.0 cm\S\2 LVLd ap4 7.7 cm EDV(MOD-sp4) 70.0 ml LVAs ap4 13.9 cm\S\2 LVLs ap4 5.9 cm ESV(MOD-sp4) 28.0 ml EF(MOD-sp4) 60.0 % LVAd ap2 24.9 cm\S\2 LVLd ap2 7.5 cm EDV(MOD-sp2) 71.0 ml LVAs ap2 14.2 cm\S\2 LVLs ap2 5.9 cm ESV(MOD-sp2) 30.0 ml EF(MOD-sp2) 57.7 % CO(MOD-sp4) 2.9 l/min CI(MOD-sp4) 1.4 l/min/m\S\2 SV(MOD-sp4) 42.0 ml SI(MOD-sp4) 20.0 ml/m\S\2 CO(MOD-sp2) 2.8 l/min CI(MOD-sp2) 1.4 l/min/m\S\2 SV(MOD-sp2) 41.0 ml SI(MOD-sp2) 19.6 ml/m\S\2 Doppler Measurements and Calculations MV E max michelle 61.0 cm/sec MV A max michelle 62.4 cm/sec MV E/A 0.98 MV dec time 0.25 sec Ao V2 max 100.4 cm/sec Ao max PG 4.0 mmHg Ao max PG (full) 1.3 mmHg LEVY(V,A) 2.5 cm\S\2 LEVY(V,D) 2.5 cm\S\2 LV V1 max PG 2.8 mmHg LV V1 max 83.0 cm/sec PA V2 max 81.4 cm/sec PA max PG 2.7 mmHg PA acc slope 327.0 cm/sec\S\2 PA acc time 0.14 sec PI max michelle 126.2 cm/sec PI max PG 6.4 mmHg PI dec slope 175.7 cm/sec\S\2 PI P1/2t 210.4 msec TR max michelle 188.7 cm/sec PA pr(Accel) 17.2 mmHg
[2016-08-08 16:20] LABS: CHOLESTEROL/HDL RATIO 4.3
[2016-08-08] MEDS ORDERED: ATOR10TA82 PO (17:21)
--- NOTE | 2016-08-08 17:22 | Discharge Instructions ---
Discharge Instructions Admission Admission Date: Aug 08, 2016 at 08:53 Admission Diagnosis: Chest Pain. Care Plan - Goal(s): Improve function Care Plan - Instructions: Activity Recommendations: no limitations Recommended Home Diet: NPO, NPO Except Meds, Type 2 Diabetes AHA VTE Core Measure Inpt VTE Proph given/why not?: Unfractionated heparin SQ, T.E.D. Stockings, SCD 's Laboratory Results Test Results: Hemoglobin A1c Test 08/08/16 15:44 Range/Units Lipid Panel Test 08/08/16 15:44 Range/Units Triglycerides Level 215 H 0-150 mg/dl Cholesterol Level 196 0-200 mg/dl HDL Cholesterol 46 mg/dl Cholesterol/HDL Ratio 4.3 LDL Cholesterol, Calculated 107 mg/dl [facility] [place] Recommendations: Call your doctor if: * Temperature above 101 degrees * Pain not relieved by pain medicine ordered * There is increased drainage or redness from any incision * You have any unanswered questions or concerns. Your Doctors Instructions noted above were prepared by provider Guanako Delacruz.
--- NOTE | 2016-08-08 18:15 | Discharge Summary ---
Discharge Summary Date of Service Aug 08, 2016. Discharge Summary Admission Date: Aug 08, 2016 at 08:53 Discharge Date: Aug 08, 2016 Discharge Disposition: Home Principal Diagnosis: Chest pain, likely musclo skeletal Problems/Secondary Diagnoses: Dyslipidemia Diabetes CAD Immunizations: Have You Had Influenza Vaccine: Unknown Influenza Vaccine Date: May 26, 2009 History of Tetanus Vaccine?: Unknown History of Pneumococcal: Unknown Pneumococcal Date: Feb 24, 2008 History of Hepatitis B Vaccine: Unknown Medication Reconciliation New Medications: Atorvastatin (Lipitor) 10 Mg Tab 1 TAB PO DAILY for 30 Days, #30 TAB 5 Refills Continued Medications: Aspirin (Aspirin Ec) 81 Mg Tab 81 MG PO DAILY Citalopram Hydrobromide (Citalopram Hydrobromide) 20 Mg Tab 20 MG PO DAILY, TAB Metformin Hcl (Glucophage) 500 Mg Tab 500 MG PO DAILY PRN for ELEVATED BLOOD SUGAR, TAB Discharge Exam Review of Systems: Constitutional: No chills, No fatigue, No fever, No problem reported, No sweats, No weakness, No weight loss Eyes: No diplopia, No discharge, No eye pain, No problem reported, No redness, No worsening of vision ENT: No dental problems, No hearing loss, No nasal symptoms, No problem reported, No sore throat, No tinnitus, No trouble swallowing, No unusual epistaxis Respiratory: No cough, No dyspnea at rest, No dyspnea on exertion, No hemoptysis, No problem reported, No shortness of breath, No sputum, No wheezing Cardiovascular: No PND, No chest pain, No claudication, No edema, No orthopnea, No palpitations, No problem reported Abdomen: No GI bleeding, No constipation, No diarrhea, No nausea, No pain, No problem reported, No vomiting Musculoskeletal: No calf pain, No joint pain, No muscle pain, No problem reported, No swelling Genitourinary - Male: No dysuria, No hematuria, No impotence, No lesions, No penile discharge, No problem reported, No urinary frequency, No urinary hesitancy, No urinary incontinence, No urinary retention, No urinary urgency Neurologic: No balance problems, No memory loss, No numbness/tingling, No paralysis, No problem reported, No vertigo, No weakness Psychiatric: No anhedonism, No anxiety, No depression symptoms, No insomnia , No problem reported, No substance abuse Endocrine: No excessive thirst, No excessive urination, No fatigue, No problem reported Hematologic / Lymphatic: No abnormal bleeding/bruising, No clotting problems , No night sweats, No problem reported, No swollen lymph nodes Integumentary: No bleeding, No color change, No itch, No new/changing skin lesions, No problem reported, No rash Physical Exam: General Appearance: no apparent distress Eyes: normal inspection, EOMI ENT: normal ENT inspection, hearing grossly normal Neck: supple Respiratory/Chest: chest non-tender, lungs clear, normal breath sounds, no respiratory distress, no accessory muscle use Cardiovascular: regular rate, rhythm, no edema, no gallop, no JVD, no murmur Abdomen / GI: normal bowel sounds, non tender, soft, no organomegaly, no pulsatile mass, normal rectal exam Extremities: normal inspection, no calf tenderness, normal capillary refill , no pedal edema Neurologic/Psychiatric: doctor naturopathic II-XII nml as tested, no motor/sensory deficits , alert, normal mood/affect, normal reflexes, oriented x 3 Skin: normal color, warm/dry, no rash Hospital Course This is a 66 yo M with PMHx of CAD diagnosed in 2009 (known 80% lesion in a coronory branch artery/he does not remember the name / was not stented due to unfeasible lesion located at a bifurcation), Hyperlipidemia, DM II used to be on Metformin and glyburide but stopped after being on a strict diet, also has hx radical prostatectomy 2006, depression and anxiety now presenting with new onset of dull left-sided chest pain with radiation into the left arm. due to his previous history of CAD he was admitted to R/O ACS. [employer] was consulted 2 sets of cardiac enz are negative patient had negative stress test with no EKG changes lipids showed LDL of 107 HgbA1C to stratify his risk was sent to lab, but results will be obtained tomorrow he was started on lipitor 10mg po daily to prevent progression of his previous lesion instructed to check liver and muscle enz in 4 weeks. cleared for discharge and will follow up with his PCP Total Time Spent: Greater than 30 minutes This includes examination of the patient, discharge planning, medication reconciliation, and communication with other providers. Discharge Instructions Please refer to the electronic Patient Visit Report (Discharge Instructions) for additional information.
--- NOTE | 2016-08-08 20:24 | CARDIOLOGY CONSULTATION ---
DATE OF CONSULTATION: 08/08/2016 CONSULTATION REQUESTED BY: Dr. Lauro Araujo. REASON FOR CONSULTATION: Chest pain. HISTORY OF PRESENT ILLNESS: Mr. Allen is a 66-year-old man with a history of type 2 diabetes, hypertension and prior coronary artery disease involving a small second diagonal on cardiac catheterization in 2009, who was readmitted in the setting of new onset chest pain. The patient states that he has been in his usual state of health as of late. He did report that he has been less active as of recent and has gained significant weight. With activity though denied any recent chest pain or other new symptoms. More recently, the day prior to admission, the patient was at home in his apartment when developed chest pressure that radiated to his left shoulder. The patient walked around, pain got somewhat better, did notice some mild sweating with walking. Pain eventually completely resolved. Later in the morning, patient was awoken again with similar chest pressure and as a result presented to ED. In the ED, the patient was initially hemodynamically stable. He was chest pain free. His EKG was within normal limits and his first set of cardiac enzymes was negative. He was admitted to telemetry for further observation and no events have been noted on telemetry since admission. PAST MEDICAL HISTORY: 1. Coronary artery disease, underwent a cardiac catheterization in [address] Hanna, was found to have essentially normal coronary arteries except for some mild luminal irregularities in the mid segment of the LAD and an 80% ostial stenosis and a very small second diagonal. Medical management recommended. Following that, he was followed by a head golf professional, Dr. Ruiz in [place] who he last saw approximately 6 years ago. 2. Type 2 diabetes, previously managed with diet and exercise, hypertension, hyperlipidemia, prior prostate cancer status post resection. FAMILY HISTORY: Both his brothers have heart issues, primarily valvular heart disease, status post multiple open heart surgeries. No history of premature coronary artery disease. SOCIAL HISTORY: The patient is a remote smoker, more than 20 years ago. Denies any recent tobacco, alcohol or illicit drugs. He is and lives with his . He is retired and previously worked for the [employer]. REVIEW OF SYSTEMS: 10-point review of systems was completed and otherwise negative unless stated in HPI. PHYSICAL EXAMINATION: VITAL SIGNS: Temperature is 36.5, pulse 61, blood pressure 144/80, he is satting 98% on room air. GENERAL: The patient appears comfortable, in no acute distress. HEENT: Sclerae are anicteric. Oropharynx clear. Mucous membranes are moist. NECK: Supple with no lymphadenopathy. LUNGS: Clear to auscultation bilaterally. HEART: Regular rate and rhythm with no murmurs, rubs or gallops. ABDOMEN: Soft, nontender, nondistended with positive bowel sounds. EXTREMITIES: Warm. He has intact distal pulses including 2+ bilateral radial pulses. No significant lower extremity edema. SKIN: Shows no rashes or lesions. MUSCULOSKELETAL: He has no joint tenderness. No tenderness across the surface of his chest wall. NEUROLOGIC: Nonfocal. PSYCHIATRIC: Alert and oriented x3 and appropriate mood and affect. LABORATORY DATA: Sodium 139, potassium 3.9, BUN 23, creatinine of 1.0, random glucose 151. LFTs within normal limits. Initial troponin less than 0.015, lipase elevated at 451. INR less than 1.0. D-dimer less than 190. WBC of 4.7, hemoglobin of 15.4, platelets of 172. Chest x-ray showed no acute cardiopulmonary process. EKG shows normal sinus rhythm at a ventricular rate of [address] changes. IMPRESSION AND PLAN: 1. Chest pain. 2. History of coronary artery disease. 3. Diet managed diabetes. 4. Hypertension. The patient is here with acute onset of rest chest pain concerning for possible acute coronary syndrome. With the patient's risk factors, further risk stratification is warranted and we will plan to obtain a stress test. The patient has only had 1 set of cardiac enzymes and will get a second prior to test. If that set is negative, we will proceed with stress test hopefully today. If not, we will plan for early tomorrow morning. In the interim, would continue on current therapy with aspirin, diabetes management and statin. If stress test unremarkable from a cardiac standpoint, would be safe for discharge and could go on planned flight. Thank you for allowing us to participate in the care of this patient. Please contact with any questions. FRANCISCO
[2016-08-09 07:30] LABS: ESTIMATED AVERAGE GLUCOSE 131 mg/dl; HA1C FLAG Normal (Normal)
[2016-08-09] MEDS ORDERED: ASPIRIN 325 MG ECTAB PO SCH (09:00)
[2016-08-09] MEDS ORDERED: DC ALL PREVIOUSLY ORDERED DIABETES MEDS ONE (09:00)
== END 2016-08-08 18:36 | disposition home or self-care (01) ==
LOC: ENRESERVDT → ENRESERVTM → C.EDB 04:35 → C.2T 08:53
PROVIDERS: ADMIT Internal Medicine; ATTEND Internal Medicine
DX: R07.9 Chest pain, unspecified (principal); E11.9 Type 2 diabetes mellitus without complications; I10 Essential (primary) hypertension; I25.10 Atherosclerotic heart disease of native coronary artery without angina pectoris; F32.9 Major depressive disorder, single episode, unspecified; E78.5 Hyperlipidemia, unspecified; Z85.46 Personal history of malignant neoplasm of prostate; Z87.891 Personal history of nicotine dependence; Z90.79 Acquired absence of other genital organ(s); Z79.82 Long term (current) use of aspirin; Z82.49 Family history of ischemic heart disease and other diseases of the circulatory system

== ENCOUNTER → 2016-09-27 | Outpatient (CLI) | payer OTHER ==
[~2016-09-27] MED LIST changes: -ASPEC325 PO; +ASPI81TA28 PO; +ATOR10TA82 PO; +CITA20TA4 PO; +GLC/500 PO; -GLC500 PO; -LISI-729 PO; -MEDLIST; -METO50TA7 PO; -NTRGSL/4 UT; -SIMV5TAB2 PO
[2016-09-27 11:53] LABS: ESTIMATED AVERAGE GLUCOSE 131 mg/dl; HA1C FLAG Normal (Normal)
== END | disposition home or self-care (01) ==
LOC: C.LAB1850 09:19
PROVIDERS: ATTEND Family Medicine
DX: E11.9 Type 2 diabetes mellitus without complications (principal)

== ENCOUNTER → 2016-12-22 | Outpatient (CLI) | payer OTHER ==
[~2016-12-22] MED LIST changes: -ATOR10TA82 PO; +ATOR10TA88 PO
[2016-12-22 09:58] LABS: BASO % 0.6 %; BASO ABS # 0.02 K/uL (0-0.2); COMPLETE YES; EOS % 3.6 %; HEMATOCRIT 44.9 % (42-52); IG% 0.3 %; LYMPH % 21.7 %; LYMPH ABS # 0.78 K/uL (1.2-3.4); MEAN CELL VOLUME 86.5 fL (80-100); MEAN CORPUSCULAR HEMOGLOBIN 29.3 pg (25-34); MEAN CORPUSCULAR HGB CONC 33.9 g/dl (32-36); MONO % 12.5 %; NEUT % 61.3 %; PLATELET COUNT 175 K/uL (130-400); RED BLOOD COUNT 5.19 M/uL (4.7-6.1); WHITE BLOOD COUNT 3.59 K/uL (4.8-10.8)
[2016-12-22 10:10] LABS: ESTIMATED AVERAGE GLUCOSE 134 mg/dl; HA1C FLAG Normal (Normal)
[2016-12-22 10:27] LABS: ALT/SGPT 36 U/L (12-78); BLOOD UREA NITROGEN 17 mg/dl (7-18); BUN/CREATININE RATIO 17.4 (10-20); CALCIUM 9.1 mg/dl (8.5-10.1); CARBON DIOXIDE 28 mmol/L (21-32); CHLORIDE 103 mmol/L (98-107); CHOLESTEROL 204 mg/dl (0-200); GLUCOSE 140 mg/dl (70-99); POTASSIUM 3.9 mmol/L (3.5-5.1); SODIUM 136 mmol/L (136-145)
[2016-12-22 10:30] LABS: ALKALINE PHOSPHATASE 70 U/L (45-117); AST/SGOT 17 U/L (15-37); CHOLESTEROL/HDL RATIO 4.5; HDL CHOLESTEROL 45 mg/dl; LDL CHOLESTEROL CALCULATED 108 mg/dl; TRIGLYCERIDES 255 mg/dl (0-150); VERY LOW DENSITY LIPOPROT CALC 51 mg/dl
== END | disposition home or self-care (01) ==
LOC: C.LAB1850 09:06
PROVIDERS: ATTEND Family Medicine
DX: E11.9 Type 2 diabetes mellitus without complications (principal)

== ENCOUNTER → 2017-05-10 | Outpatient (CLI) | payer OTHER ==
[~2017-05-10] MED LIST changes: +ATOR10TA82 PO; -ATOR10TA88 PO
[2017-05-10 12:12] LABS: BASO % 0.7 %; BASO ABS # 0.03 K/uL (0-0.2); EOS % 3.9 %; EOS ABS # 0.17 K/uL (0-0.5); HEMATOCRIT 44.1 % (42-52); HEMOGLOBIN 15.2 g/dL (14.0-18.0); IG# 0.01 K/uL (0.00-0.02); LYMPH % 21.3 %; LYMPH ABS # 0.93 K/uL (1.2-3.4); MEAN CELL VOLUME 87.8 fL (80-100); MEAN CORPUSCULAR HEMOGLOBIN 30.3 pg (25-34); MEAN CORPUSCULAR HGB CONC 34.5 g/dl (32-36); MONO % 10.1 %; MONO ABS # 0.44 K/uL (0.11-0.59); NEUT % 63.8 %; NEUT ABS # 2.78 K/uL (1.4-6.5); PLATELET COUNT 167 K/uL (130-400); RED CELL DISTRIBUTION WIDTH CV 12.5 % (11.5-14.5); RED CELL DISTRIBUTION WIDTH SD 39.9 fL (36.4-46.3); WHITE BLOOD COUNT 4.36 K/uL (4.8-10.8)
[2017-05-10 12:34] LABS: ALBUMIN 4.2 gm/dl (3.4-5.0); ALT/SGPT 39 U/L (12-78); AST/SGOT 15 U/L (15-37); BLOOD UREA NITROGEN 25 mg/dl (7-18); CALCIUM 8.9 mg/dl (8.5-10.1); CARBON DIOXIDE 29 mmol/L (21-32); CHOLESTEROL 164 mg/dl (0-200); CREATININE 0.99 mg/dl (0.60-1.40); GLUCOSE 142 mg/dl (70-99); SODIUM 135 mmol/L (136-145)
[2017-05-10 12:36] LABS: ALKALINE PHOSPHATASE 63 U/L (45-117); LDL CHOLESTEROL CALCULATED 74 mg/dl; TOTAL PROTEIN 7.4 gm/dl (6.4-8.2)
[2017-05-10 12:54] LABS: HEMOGLOBIN A1C 6.4 % (4.5-5.6)
== END | disposition home or self-care (01) ==
LOC: C.LAB1850 10:25
PROVIDERS: ATTEND Physician Assistant Medical
DX: E11.9 Type 2 diabetes mellitus without complications (principal)

== ENCOUNTER → 2017-08-10 | Outpatient (CLI) | payer OTHER ==
[2017-08-10 10:26] LABS: HEMATOCRIT 41.8 % (42-52); HEMOGLOBIN 14.7 g/dL (14.0-18.0); MEAN CELL VOLUME 85.8 fL (80-100); MEAN CORPUSCULAR HEMOGLOBIN 30.2 pg (25-34); MEAN CORPUSCULAR HGB CONC 35.2 g/dl (32-36); MEAN PLATELET VOLUME 10.1 fL (7.4-10.4); PLATELET COUNT 160 K/uL (130-400); RED CELL DISTRIBUTION WIDTH CV 13.1 % (11.5-14.5); RED CELL DISTRIBUTION WIDTH SD 40.7 fL (36.4-46.3); WHITE BLOOD COUNT 3.35 K/uL (4.8-10.8)
[2017-08-10 10:43] LABS: ALBUMIN 4.1 gm/dl (3.4-5.0); ALT/SGPT 36 U/L (12-78); BLOOD UREA NITROGEN 16 mg/dl (7-18); CARBON DIOXIDE 27 mmol/L (21-32); CHOLESTEROL 211 mg/dl (0-200); CREATININE 1.03 mg/dl (0.60-1.40); GLUCOSE 105 mg/dl (70-99); POTASSIUM 4.1 mmol/L (3.5-5.1); SODIUM 138 mmol/L (136-145)
[2017-08-10 10:46] LABS: ALKALINE PHOSPHATASE 59 U/L (45-117); AST/SGOT 18 U/L (15-37); LDL CHOLESTEROL CALCULATED 98 mg/dl; TOTAL PROTEIN 7.2 gm/dl (6.4-8.2)
[2017-08-10 10:48] LABS: HEMOGLOBIN A1C 6.1 % (4.5-5.6)
== END | disposition home or self-care (01) ==
LOC: C.LAB1850 08:41
PROVIDERS: ATTEND Physician Assistant Medical
DX: E11.9 Type 2 diabetes mellitus without complications (principal)